=== PATIENT | male | born 1975 | race African-American/Black ===

== ENCOUNTER 2017-02-08 21:46 | Observation (INO) | payer MEDICAID ==
[~2017-02-08 21:46] MED LIST: LANTINJ SQ; METF1000 PO; PEN31MIS2
[2017-02-08 21:56] VITALS: BP 135/91; PULSE 118; RESP 16; TEMP 99.2; O2SAT 97
[2017-02-09] VITALS (8 sets, daily range): BP systolic 104–137; BP diastolic 61–98; PULSE 64–102; RESP 16–20; TEMP 98.4–98.6; O2SAT 97–99
[2017-02-09] MEDS ORDERED: SODIUM CHLOR 0.9% 1000 ML INJ 1,000 ML IV ONE ×2 (03:26→03:56)
[2017-02-09] MEDS ORDERED: INSULIN HUMAN REGULAR 1,000 UNITS/10 ML VIAL SQ ONE (03:30)
[2017-02-09] MEDS ORDERED: INSULIN HUMAN REGULAR 1,000 UNITS/10 ML VIAL IV PUSH ONE (03:30)
[2017-02-09 03:32] LABS: BLOOD GAS VENOUS BASE EXCESS -2.8 mmol/L (-2-2); BLOOD GAS VENOUS HCO3 22 mmol/L (22-26); BLOOD GAS VENOUS O2 CONTENT 12.8 Vol % (9.0-17.0); BLOOD GAS VENOUS O2 HGB SAT 55 % (70-76); BLOOD GAS VENOUS PCO2 41 mmHg (44-48); BLOOD GAS VENOUS PO2 31 mmHg (35-40); BLOOD GAS VENOUS pH 7.35 (7.360-7.400); CRITICAL VALUE NO; DRAW SITE RIGHT ARM; FIO2 21 %; OXYGEN DEVICE ROOM AIR; STAT YES; TEMP CORR TO 98.6
[2017-02-09 03:47] LABS: AUTOMATED NEUTROPHIL # 9.2 TH/MM3 (1.8-7.7); BASOPHIL # 0.1 TH/MM3 (0-0.2); BASOPHIL % 0.9 % (0.0-2.0); EOSINOPHIL # 0.1 TH/MM3 (0-0.4); EOSINOPHIL % 0.5 % (0.0-4.0); HEMATOCRIT 52.1 % (39.0-51.0); HEMO FLAGS DIFF FINAL; LYMPH % 24.5 % (9.0-44.0); LYMPHOCYTE # 3.3 TH/MM3 (1.0-4.8); MEAN CORPUSCULAR HEMOGLOBIN 28.7 PG (27.0-34.0); MEAN CORPUSCULAR HGB CONC 33.4 % (32.0-36.0); MONO % 5.7 % (0.0-8.0); NEUT % 68.4 % (16.0-70.0); PLATELET COUNT 281 TH/MM3 (150-450); RED BLOOD COUNT 6.06 MIL/MM3 (4.50-5.90); RED CELL DISTRIBUTION WIDTH 13.2 % (11.6-17.2); WHITE BLOOD COUNT 13.5 TH/MM3 (4.0-11.0)
--- NOTE | 2017-02-09 03:49 | PD ---
HPI Chief Complaint: Diabetic Time Seen by Provider: 03:26 Travel History International Travel<30 days: No Contact w/Intl Traveler<30days: No Traveled to known affect area: No History of Present Illness HPI PT C/O DIFFUSE ABD CRAMPY PAIN, NO N/V/D/CP/SOB/MOON/ BUT HIGH BLOOD SUGAR FOR PAST 2 DAYS, NOT CONTROLLED WITH METFORMIN 1000MG PO BID PRESCRIBED. PT COMES IN FOR FURTHER EVALUATION AND CARE. ACCUCHECK IN 500'S [facility] Past Medical History Diabetes: Yes Patient Takes Glucophage: Yes (02/08/17 1800) Diminished Hearing: No Hypertension: Yes Influenza Vaccination: No Past Surgical History Surgical History: No Previous Surgery Social History Alcohol Use: Yes Tobacco Use: Yes Substance Use: Yes (marijuana) Allergies-Medications (Allergen,Severity, Reaction): Coded Allergies: No Known Allergies (Unverified , 09/27/16) Reported Meds & Prescriptions Reported Meds & Active Scripts Active Review of Systems Except as stated in HPI: all other systems reviewed are Neg Gastrointestinal: Positive: Nausea Endocrine: Positive: Polyuria, Polydipsia Physical Exam Narrative GENERAL: SKIN: Warm and dry. HEAD: Atraumatic. Normocephalic. EYES: Pupils equal and round. No scleral icterus. No injection or drainage. ENT: No nasal bleeding or discharge. Mucous membranes pink and moist. NECK: Trachea midline. No JVD. CARDIOVASCULAR: Regular rate and rhythm. RESPIRATORY: No accessory muscle use. Clear to auscultation. Breath sounds equal bilaterally. GASTROINTESTINAL: Abdomen soft, non-tender, nondistended. MUSCULOSKELETAL: Extremities without clubbing, cyanosis, or edema. No obvious deformities. NEUROLOGICAL: Awake and alert. No obvious cranial nerve deficits. Motor grossly within normal limits. Five out of 5 muscle strength in the arms and legs. Normal speech. PSYCHIATRIC: Appropriate mood and affect; insight and judgment normal. Data Data Last Documented VS Vital Signs Date Time Temp Pulse Resp B/P Pulse Ox O2 Delivery O2 Flow Rate FiO2 02/09/17 03:21 102 18 137/98 99 Room Air 02/08/17 21:56 99.2 Orders Electrocardiogram (02/09/17 03:26) Complete Blood Count With Diff (02/09/17 03:26) Comprehensive Metabolic Panel (02/09/17 03:26) Beta Hydroxybutyrate (Acetone) (02/09/17 03:26) Urinalysis - C+S If Indicated (02/09/17 03:26) Blood Gas Venous (Vbg) (02/09/17 03:26) Ecg Monitoring (02/09/17 03:26) Iv Access Insert/Monitor (02/09/17 03:26) Oximetry (02/09/17 03:26) NPO (02/09/17 03:26) Sodium Chlor 0.9% 1000 Ml Inj (Ns 1000 M (02/09/17 03:26) Sodium Chlor 0.9% 1000 Ml Inj (Ns 1000 M (02/09/17 03:56) Troponin I (02/09/17 03:26) Lipase (02/09/17 03:26) Ct Abd/Pel W/O Iv Contrast (02/09/17 03:26) Insulin Human Regular Inj (Novolin R Inj (02/09/17 03:30) Insulin Human Regular Inj (Novolin R Inj (02/09/17 03:30) Ondansetron Inj (Zofran Inj) (02/09/17 04:45) Sodium Chlor 0.9% 1000 Ml Inj (Ns 1000 M (02/09/17 04:40) Hydromorphone Pf Inj (Dilaudid Pf Inj) (02/09/17 04:45) Admit Order (Ed Use Only) (02/09/17 04:54) Labs Laboratory Tests Test 02/09/17 02/09/17 02/09/17 03:20 03:30 04:02 Blood Gas Puncture Site RIGHT ARM Blood Gas Patient Temperature 98.6 Venous Blood pH 7.35 Venous Blood Partial Pressure 41 mmHg CO2 Venous Blood Partial Pressure 31 mmHg O2 Venous Blood HCO3 22 mmol/L Venous Blood Oxygen Saturation 55 % Venous Blood Oxygen Content 12.8 Vol % Venous Blood Base Excess -2.8 mmol/L Oxygen Delivery Device ROOM AIR Blood Gas Inspired Oxygen 21 % White Blood Count 13.5 TH/MM3 Red Blood Count 6.06 MIL/MM3 Hemoglobin 17.4 GM/DL Hematocrit 52.1 % Mean Corpuscular Volume 86.0 FL Mean Corpuscular Hemoglobin 28.7 PG Mean Corpuscular Hemoglobin 33.4 % Concent Red Cell Distribution Width 13.2 % Platelet Count 281 TH/MM3 Mean Platelet Volume 10.6 FL Neutrophils (%) (Auto) 68.4 % Lymphocytes (%) (Auto) 24.5 % Monocytes (%) (Auto) 5.7 % Eosinophils (%) (Auto) 0.5 % Basophils (%) (Auto) 0.9 % Neutrophils # (Auto) 9.2 TH/MM3 Lymphocytes # (Auto) 3.3 TH/MM3 Monocytes # (Auto) 0.8 TH/MM3 Eosinophils # (Auto) 0.1 TH/MM3 Basophils # (Auto) 0.1 TH/MM3 CBC Comment DIFF FINAL Differential Comment Sodium Level 131 MEQ/L Potassium Level 3.9 MEQ/L Chloride Level 93 MEQ/L Carbon Dioxide Level 25.8 MEQ/L Anion Gap 12 MEQ/L Blood Urea Nitrogen 9 MG/DL Creatinine 1.40 MG/DL Estimat Glomerular Filtration 67 ML/MIN Rate Random Glucose 637 MG/DL Hemoglobin A1c 15.2 % Calcium Level 9.1 MG/DL Total Bilirubin 0.8 MG/DL Aspartate Amino Transf 19 U/L (AST/SGOT) Alanine Aminotransferase 23 U/L (ALT/SGPT) Alkaline Phosphatase 126 U/L Troponin I LESS THAN 0.02 NG/ML Total Protein 8.6 GM/DL Albumin 4.0 GM/DL Lipase 773 U/L B-Hydroxybutyrate 0.66 MMOL/L Urine Color LIGHT-YELLOW Urine Turbidity CLEAR Urine pH 5.0 Urine Specific [employer] 1.041 Urine Protein NEG mg/dL Urine Glucose (UA) 1000 mg/dL Urine Ketones 40 mg/dL Urine Occult Blood NEG Urine Nitrite NEG Urine Bilirubin NEG Urine Urobilinogen LESS THAN 2.0 MG/DL Urine Leukocyte Esterase NEG Urine WBC LESS THAN 1 /hpf Microscopic Urinalysis Comment CULT NOT INDICATED MDM Medical Decision Making Medical Screen Exam Complete: Yes Emergency Medical Condition: Yes Medical Record Reviewed: Yes Interpretation(s) NSR 95, NL INTERVALS, J POINT ELEVATION, NO STEMI PATTERN, Differential Diagnosis HYPERGLYCEMIA V TX V PANCREATITIS Narrative Course NO STEMI FOUND ON EKG, HOWEVER FOUND TO HAVE ELEV LIPASE AN GLUCOSE Diagnosis Primary Impression: Acute pancreatitis Qualified Code: K85.90 - Acute pancreatitis, unspecified complication status, unspecified pancreatitis type Additional Impression: Hyperglycemia due to type 2 diabetes mellitus Qualified Code: E11.65 - Type 2 diabetes mellitus with hyperglycemia, without long-term current use of insulin Scripts Insulin Syringe/Needle U-100 (Insulin Syringe/0.5ML/30G 30G X 1/2" 0.5 ml)1 Mis Mis #1 BOX .ROUTE DIRECTED PRN (BLOOD SUGAR MONITORING) Ref 11 Prov:Srinivasan Oneill DO 02/10/17 Blood Glucose Test Strips Strips Strip #300 EA .ROUTE DIRECTED Ref 11 Prov:PapadomingoSrinivasan thomas DO 02/10/17 Blood Glucose Monitoring W/Device 1 Kit Kit #1 KIT .ROUTE DIRECTED Ref 0 Prov:Srinivasan Oneill DO 02/10/17 Insulin Glargine Inj (Lantus Inj)100 Unit/Ml Inj20 Units SQ DAILY #7 VIAL Prov:Srinivasan Oneill DO 02/10/17 Metformin 1,000 Mg Tab1,000 Mg PO BIDPC #60 TAB Ref 6 With meals Prov:Srinivasan Oneill DO 02/10/17 Disposition: 01 DISCHARGE HOME Condition: Stable Parmjit Christine MD Feb 09, 2017 03:49
[2017-02-09 04:13] LABS: ANION GAP 12 MEQ/L (5-15)
[2017-02-09 04:23] LABS: ALKALINE PHOSPHATASE 126 U/L (45-117); ALT (GPT) 23 U/L (12-78); AST (GOT) 19 U/L (15-37); BETA-HYDROXYBUTYRATE 0.66 MMOL/L (0.00-0.39); BICARBONATE 25.8 MEQ/L (21.0-32.0); BLOOD UREA NITROGEN 9 MG/DL (7-18); CHLORIDE 93 MEQ/L (98-107); GLOMERULAR FILTRATION RATE 67 ML/MIN (>89); POTASSIUM 3.9 MEQ/L (3.5-5.1); SODIUM (NA) 131 MEQ/L (136-145); TOTAL BILIRUBIN ADULT 0.8 MG/DL (0.2-1.0)
[2017-02-09 04:33] LABS: BLOOD, URINE NEG (NEG); GLUCOSE,URINE 1000 mg/dL (NEG); KETONE, URINE 40 mg/dL (NEG); NITRITE,URINE NEG (NEG); URINE COLOR LIGHT-YELLOW (YELLW/STRAW)
[2017-02-09 04:38] LABS: COMMENT (UR) CULT NOT INDICATED; CULTURE IF INDICATED CULT NOT INDICATED
[2017-02-09] MEDS ORDERED: SODIUM CHLOR 0.9% 1000 ML INJ 1,000 ML IV SCH (04:40)
[2017-02-09] MEDS ORDERED: ONDANSETRON HCL 4 MG/2 ML VIAL IVP ONE (04:45)
[2017-02-09] MEDS ORDERED: HYDROmorphone HCL PF 1 MG/ML VIAL IVS ONE (04:45)
[2017-02-09] MEDS: SODIUM CHLOR 0.9% 1000 ML INJ 1,000 ML IV SCH ×3 (04:56→22:32)
--- NOTE | 2017-02-09 04:59 | RADRPT ---
EXAM DATE/TIME: 02/09/2017 04:12 [place] COMPARISON: SPINE LUMBAR LTD (AP & LAT), July 27, 2015, 19:38. INDICATIONS : Diffuse abdominal pain. ORAL CONTRAST: No oral contrast ingested. RADIATION DOSE: 15.93 CTDIvol (mGy) MEDICAL HISTORY : Hypertension. Diabetes. SURGICAL HISTORY : None. ENCOUNTER: Initial ACUITY: 1 day PAIN SCALE: 5/10 LOCATION: All quadrants. TECHNIQUE: Volumetric scanning of the abdomen and pelvis was performed. Using automated exposure control and ad justment of the mA and/or kV according to patient size, radiation dose was kept as low as reasonably achievable to obtain optimal diagnostic quality images. DICOM format image data is available electro nically for review and comparison. FINDINGS: LOWER LUNGS: The visualized lower lungs are clear. LIVER: Homogeneous density without lesion for noncontrast technique. There is no dilation of the biliary tr ee. No calcified gallstones. SPLEEN: Normal size without lesion. PANCREAS: Within normal limits. KIDNEYS: Normal in size and shape. There is no mass, stone, or hydronephrosis. ADRENAL GLANDS: Within normal limits. VASCULAR: There is no aortic aneurysm. BOWEL/MESENTERY: No dilated loops of small large bowel. The appendix is identified in the right lower quadrant has a normal size and configuration. ABDOMINAL WALL: Fat-containing right paraumbilical ventral hernia RETROPERITONEUM: There is no lymphadenopathy. BLADDER: No wall thickening or mass. REPRODUCTIVE: Within normal limits. INGUINAL: There is no lymphadenopathy or hernia. MUSCULOSKELETAL: Focal area sclerosis in the medial right iliac bone adjacent to SI joint stable from prior convention al radiograph. CONCLUSION: Negative noncontrast CT abdomen/pelvis. Kareem Golden MD on February 09, 2017 at 4:54 Board Certified Radiologist. This report was verified electronically.
[2017-02-09] MEDS ORDERED: NALOXONE HCL 0.4 MG/ML AMP IV PRN (05:00)
[2017-02-09] MEDS ORDERED: SODIUM CHLORIDE 0.9% FLUSH 10 ML FLUSH IV FLUSH PRN (05:00)
[2017-02-09] MEDS: SODIUM CHLORIDE 0.9% FLUSH 10 ML FLUSH IV FLUSH SCH ×2 (09:00→22:32)
[2017-02-09] MEDS ORDERED: DEXTROSE 50% IN WATER 50 ML VIAL(D50) IV PRN (12:15)
[2017-02-09] MEDS ORDERED: GLUCAGON 1 MG/ML VIAL OTHER PRN (12:15)
--- NOTE | 2017-02-09 12:23 | HHI.HP ---
[facility] Service [facility] Primary Care Physician Lakeisha Zamora MD Admission Diagnosis ACUTE PANCREATITIS,HYPERGLYCEMIA WITH MILD KETOSIS Diagnoses: (1) Hyperglycemia due to type 2 diabetes mellitus Diagnosis: Principal (2) Acute pancreatitis Diagnosis: Principal (3) Diabetes mellitus type 2, uncontrolled Diagnosis: Principal (4) Elevated blood sugar Diagnosis: Principal (5) Diabetes mellitus, type II Diagnosis: Principal Chief Complaint: Uncontrolled blood sugar and abdominal pain Travel History International Travel<30 Days: No Contact w/Intl Traveler <30 Da: No Traveled to Known Affected Are: No History of Present Illness Patient is a 41-year-old male who presents with C/O DIFFUSE ABD CRAMPY PAIN, NO N/V/D/CP/SOB/MOON/ BUT HIGH BLOOD SUGAR FOR PAST 2 DAYS, NOT CONTROLLED WITH METFORMIN 1000MG PO BID PRESCRIBED. PT COMES IN FOR FURTHER EVALUATION AND CARE. ACCUCHECK IN 500'S Patient states he has some insulin pens but cannot recall any of the names cannot tell me what type he takes Start him on Levemir 10 units subcutaneous twice a day Continue on sliding scale coverage Get a.m. labs Check a hemoglobin A1c Get a fasting lipid panel Review of Systems Constitutional: COMPLAINS OF: Fatigue, DENIES: Diaphoretic episodes, Fever, Weight gain, Weight loss, Chills Eyes: DENIES: Blurred vision, Diplopia, Eye inflammation, Eye pain Ears, nose, mouth, throat: DENIES: Tinnitus, Hearing loss, Vertigo, Nasal discharge Respiratory: DENIES: Apneas, Cough, Snoring, Wheezing Cardiovascular: DENIES: Chest pain, Palpitations, Syncope Gastrointestinal: COMPLAINS OF: Abdominal pain, DENIES: Black stools, Bloody stools, Constipation Musculoskeletal: DENIES: Joint pain, Muscle aches Integumentary: DENIES: Abnormal pigmentation, Nail changes Hematologic/lymphatic: DENIES: Bruising, Lymphadenopathy Immunologic/allergic: DENIES: Eczema, Urticaria Neurologic: DENIES: Abnormal gait, Headache Psychiatric: DENIES: Anxiety, Confusion, Mood changes Past Family Social History Past Medical History Hypertension Diabetes uncontrolled Alcohol abuse Tobacco abuse Past Surgical History Denies Reported Medications Reported Meds & Active Scripts Active Metformin (Metformin HCl) 1,000 Mg Tab 1,000 Mg PO BIDPC With meals Allergies: Coded Allergies: No Known Allergies (Unverified , 09/27/16) Active Ordered Medications Current Medications Sodium Chloride 1,000 ml @ 2,000 mls/hr Q30M ONCE IV Last administered on 02/09 03:34; Start 02/09/17 at 03:26; Stop 02/09/17 at 03:55; Status DC Sodium Chloride (NS 1000 ml Inj) 1,000 ml @ 2,000 mls/hr Q30M ONCE IV Last administered on 02/09/17 03:34; Start 02/09/17 at 03:56; Stop 02/09/17 at 04:25 ; Status DC Insulin Human Regular (NovoLIN R INJ) 10 units ONCE ONCE SQ Last administered on 02/09/17 03:42; Start 02/09/17 at 03:30; Stop 02/09/17 at 03:31; Status DC Insulin Human Regular (NovoLIN R INJ) 10 units ONCE ONCE IV PUSH Last administered on 02/09/17 03:43; Start 02/09/17 at 03:30; Stop 02/09/17 at 03:31 ; Status DC Ondansetron HCl 4 mg 4 mg ONCE ONCE IVP Last administered on 02/09/17 04:50; Start 02/09/17 at 04:45; Stop 02/09/17 at 04:46; Status DC Sodium Chloride (NS 1000 ml Inj) 1,000 ml @ 125 mls/hr Q8H IV Last administered on 02/09/17 04:50; Start 02/09/17 at 04:40; Stop 02/09/17 at 05:04 ; Status DC Hydromorphone HCl 0.5 mg 0.5 mg ONCE ONCE IVS Last administered on 02/09/17 04:50; Start 02/09/17 at 04:45; Stop 02/09/17 at 04:46; Status DC Sodium Chloride (NS 1000 ml Inj) 1,000 ml @ 100 mls/hr Q10H IV ; Start at 04:56 Sodium Chloride (NS Flush) 2 ml UNSCH PRN IV FLUSH FLUSH AFTER USING IV ACCESS ; Start 02/09/17 at 05:00 Sodium Chloride (NS Flush) 2 ml BID IV FLUSH ; Start 02/09/17 at 09:00 Naloxone HCl (Narcan Inj) 0.4 mg UNSCH PRN IV SEE LABEL COMMENTS; Start at 05:00 Metformin HCl (Glucophage) 1,000 mg BIDPC PO ; Start 02/09/17 at 12:15; Status UNV Family History Heart disease and diabetes in the family Social History Tobacco and alcohol abuse as well as marijuana abuse Physical Exam Vital Signs Vital Signs Date Time Temp Pulse Resp B/P Pulse Ox O2 Delivery O2 Flow Rate FiO2 02/09/17 11:40 74 20 119/71 98 02/09/17 07:00 90 17 104/61 99 Room Air 02/09/17 05:59 89 16 120/80 97 Room Air 02/09/17 03:21 102 18 137/98 99 Room Air 02/08/17 21:56 99.2 118 16 135/91 97 Physical Exam GENERAL: This is a well-nourished, well-developed patient, in no apparent distress. SKIN: No rashes, ecchymoses or lesions. Cool and dry. HEAD: Atraumatic. Normocephalic. No temporal or scalp tenderness. EYES: Pupils equal round and reactive. Extraocular motions intact. No scleral icterus. No injection or drainage. ENT: Nose without bleeding, purulent drainage or septal hematoma. Throat without erythema, tonsillar hypertrophy or exudate. Uvula midline. Airway patent. Tongue is midline NECK: Trachea midline. No JVD or lymphadenopathy. Supple, nontender, no meningeal signs. CARDIOVASCULAR: Regular rate and rhythm without murmurs, gallops, or rubs. S1- S2 no S3 or S4 no heave or thrill or rub or gallop RESPIRATORY: Clear to auscultation. Breath sounds equal bilaterally. No wheezes , rales, or rhonchi. GASTROINTESTINAL: Abdomen soft, non-tender, nondistended. No hepato-splenomegaly , or palpable masses. No guarding. Obese MUSCULOSKELETAL: Extremities without clubbing, cyanosis, or edema. No joint tenderness, effusion, or edema noted. No calf tenderness. Negative Homans sign bilaterally. NEUROLOGICAL: Awake and alert. Cranial nerves II through XII intact. Motor and sensory grossly within normal limits. Five out of 5 muscle strength in all muscle groups. Normal speech. Insight and judgment appear limited mood and behavior appropriate Laboratory Laboratory Tests Test 02/09/17 02/09/17 02/09/17 03:20 03:30 04:02 Blood Gas Puncture Site RIGHT ARM Blood Gas Patient Temperature 98.6 Venous Blood pH 7.35 Venous Blood Partial Pressure 41 CO2 Venous Blood Partial Pressure 31 O2 Venous Blood HCO3 22 Venous Blood Oxygen Saturation 55 Venous Blood Oxygen Content 12.8 Venous Blood Base Excess -2.8 Oxygen Delivery Device ROOM AIR Blood Gas Inspired Oxygen 21 White Blood Count 13.5 Red Blood Count 6.06 Hemoglobin 17.4 Hematocrit 52.1 Mean Corpuscular Volume 86.0 Mean Corpuscular Hemoglobin 28.7 Mean Corpuscular Hemoglobin 33.4 Concent Red Cell Distribution Width 13.2 Platelet Count 281 Mean Platelet Volume 10.6 Neutrophils (%) (Auto) 68.4 Lymphocytes (%) (Auto) 24.5 Monocytes (%) (Auto) 5.7 Eosinophils (%) (Auto) 0.5 Basophils (%) (Auto) 0.9 Neutrophils # (Auto) 9.2 Lymphocytes # (Auto) 3.3 Monocytes # (Auto) 0.8 Eosinophils # (Auto) 0.1 Basophils # (Auto) 0.1 CBC Comment DIFF FINAL Differential Comment Sodium Level 131 Potassium Level 3.9 Chloride Level 93 Carbon Dioxide Level 25.8 Anion Gap 12 Blood Urea Nitrogen 9 Creatinine 1.40 Estimat Glomerular Filtration 67 Rate Random Glucose 637 Calcium Level 9.1 Total Bilirubin 0.8 Aspartate Amino Transf 19 (AST/SGOT) Alanine Aminotransferase 23 (ALT/SGPT) Alkaline Phosphatase 126 Troponin I LESS THAN 0.02 Total Protein 8.6 Albumin 4.0 Lipase 773 B-Hydroxybutyrate 0.66 Urine Color LIGHT-YELLOW Urine Turbidity CLEAR Urine pH 5.0 Urine Specific [employer] 1.041 Urine Protein NEG Urine Glucose (UA) 1000 Urine Ketones 40 Urine Occult Blood NEG Urine Nitrite NEG Urine Bilirubin NEG Urine Urobilinogen LESS THAN 2.0 Urine Leukocyte Esterase NEG Urine WBC LESS THAN 1 Microscopic Urinalysis Comment CULT NOT INDICATED Result Diagram: 02/09/1732902/09/17329 Imaging Last Impressions Abdomen/Pelvis CT 02/09/17325 Signed Impressions: Service Date/Time: Thursday, February 09, 2017 04:12 - CONCLUSION: Negative noncontrast CT abdomen/pelvis. Kareem Golden MD Assessment and Plan Problem List: (1) Hyperglycemia due to type 2 diabetes mellitus ICD Code: E11.65 Status: Acute (2) Acute pancreatitis ICD Code: K85.90 Status: Acute (3) Diabetes mellitus type 2, uncontrolled ICD Code: E11.65 Status: Acute (4) Elevated blood sugar ICD Code: R73.9 Status: Acute (5) Diabetes mellitus, type II ICD Code: E11.9 Status: Acute Assessment and Plan Uncontrolled diabetes. States his takes metformin and some pens not sure what type of insulin he takes could not tell me in name We'll start him on Levemir 10 units subcutaneous twice a day Resume his metformin Check a hemoglobin A1c A.m. labs Possible pancreatitis and fasting lipids. Recheck amylase and lipase in the morning Continue on a diabetic cardiac diet which she is tolerating Recommended smoking and alcohol cessation as well as marijuana cessation We'll monitor today will get diabetic education and nutrition to educate him. When he does understand how to use the pens/inject insulin Code Status Full code Discussed Condition With RN and patient Problem Qualifiers (1) Hyperglycemia due to type 2 diabetes mellitus: Qualified Code: E11.65 - Type 2 diabetes mellitus with hyperglycemia, without long-term current use of insulin (2) Acute pancreatitis: Qualified Code: K85.90 - Acute pancreatitis, unspecified complication status, unspecified pancreatitis type Srinivasan Oneill DO Feb 09, 2017 12:23
[2017-02-09] MEDS: metFORMIN HCL 500 MG TAB PO SCH ×2 (14:15→18:25)
--- NOTE | 2017-02-09 15:04 | EKG ---
Date Performed: 02/09/2017 Time Performed: 03:40:45 PTAGE: 41 years EKG: Sinus rhythm NORMAL ECG NO PREVIOUS TRACING DOCTOR: Deacon Gunderson Interpretating Date/Time 02/09/2017 15:04:23
[2017-02-09] MEDS: INSULIN ASPART SUPPLEMENTAL SCALE SQ SCH ×2 (16:36→22:35)
[2017-02-09 16:50] LABS: HEMOGLOBIN A1a 1.6 %; HEMOGLOBIN A1b 1.8 %; HEMOGLOBIN Ao 67.3 %; HEMOGLOBIN F 2.7 %; HEMOGLOBIN LA1C 4.8 %; HEMOGLOBIN P3 6.5 %
[2017-02-09] MEDS: INSULIN DETEMIR 100 UNITS/ML VIAL SQ SCH (22:34)
[2017-02-10 01:07] LABS: BICARBONATE 24.4 MEQ/L (21.0-32.0); MAGNESIUM 1.8 MG/DL (1.5-2.5); POTASSIUM 3.8 MEQ/L (3.5-5.1)
[2017-02-10 04:22] VITALS: BP 129/72; PULSE 81; RESP 20; TEMP 98.5; O2SAT 98
[2017-02-10] MEDS: INSULIN ASPART SUPPLEMENTAL SCALE SQ SCH ×2 (06:16→13:25)
[2017-02-10 07:05] LABS: AUTOMATED NEUTROPHIL # 8.5 TH/MM3 (1.8-7.7); BASOPHIL % 0.4 % (0.0-2.0); EOSINOPHIL % 0.2 % (0.0-4.0); HEMATOCRIT 43.8 % (39.0-51.0); HEMO FLAGS DIFF FINAL; LYMPH % 20.7 % (9.0-44.0); LYMPHOCYTE # 2.4 TH/MM3 (1.0-4.8); MEAN CELL VOLUME 86.8 FL (80.0-100.0); MEAN CORPUSCULAR HEMOGLOBIN 27.9 PG (27.0-34.0); MEAN CORPUSCULAR HGB CONC 32.1 % (32.0-36.0); MONO % 5.2 % (0.0-8.0); NEUT % 73.5 % (16.0-70.0); PLATELET COUNT 243 TH/MM3 (150-450); RED BLOOD COUNT 5.04 MIL/MM3 (4.50-5.90); RED CELL DISTRIBUTION WIDTH 13.1 % (11.6-17.2); WHITE BLOOD COUNT 11.5 TH/MM3 (4.0-11.0)
[2017-02-10 07:30] LABS: ALKALINE PHOSPHATASE 80 U/L (45-117); ALT (GPT) 17 U/L (12-78); AMYLASE 93 U/L (25-115); ANION GAP 9 MEQ/L (5-15); AST (GOT) 13 U/L (15-37); BICARBONATE 23.3 MEQ/L (21.0-32.0); BLOOD UREA NITROGEN 7 MG/DL (7-18); CHLORIDE 109 MEQ/L (98-107); FREE T4 1.11 NG/DL (0.76-1.46); GLOMERULAR FILTRATION RATE 112 ML/MIN (>89); HDL CHOLESTEROL 36.3 MG/DL (40.0-60.0); LDL CHOLESTEROL 7 MG/DL (0-99); MAGNESIUM 1.7 MG/DL (1.5-2.5); POTASSIUM 3.4 MEQ/L (3.5-5.1); SODIUM (NA) 141 MEQ/L (136-145); TOTAL BILIRUBIN ADULT 0.6 MG/DL (0.2-1.0)
[2017-02-10 08:00] VITALS: BP 121/68; PULSE 85; RESP 20; TEMP 98.1; O2SAT 95
[2017-02-10] MEDS: SODIUM CHLOR 0.9% 1000 ML INJ 1,000 ML IV SCH (08:29)
[2017-02-10] MEDS: SODIUM CHLORIDE 0.9% FLUSH 10 ML FLUSH IV FLUSH SCH (08:29)
[2017-02-10] MEDS: metFORMIN HCL 500 MG TAB PO SCH (08:29)
[2017-02-10] MEDS: INSULIN DETEMIR 100 UNITS/ML VIAL SQ SCH (08:35)
--- NOTE | 2017-02-10 11:46 | HHI.PR ---
Subjective Remarks Patient is a 41-year-old male who presents with C/O DIFFUSE ABD CRAMPY PAIN, NO N/V/D/CP/SOB/MOON/ BUT HIGH BLOOD SUGAR FOR PAST 2 DAYS, NOT CONTROLLED WITH METFORMIN 1000MG PO BID PRESCRIBED. PT COMES IN FOR FURTHER EVALUATION AND CARE. ACCUCHECK IN 'S Patient states he has some insulin pens but cannot recall any of the names cannot tell me what type he takes Start him on Levemir 10 units subcutaneous twice a day Continue on sliding scale coverage Get a.m. labs Check a hemoglobin A1c Get a fasting lipid panel 01-10 HBAIC IS 15.2 PATIENT HAS BEEN NONCOMPLIANT NEEDS TO TAKE HIS LANTUS AND METFORMIN NEEDS TO FOLLOW WITH HIS PRIMARY AND LEARN TO CONTROL HIS DIABETES WANTS TO GO HOME Objective Vitals Vital Signs Date Time Temp Pulse Resp B/P Pulse Ox O2 Delivery O2 Flow Rate FiO2 02/10/17 08:00 98.1 85 20 121/68 95 02/10/17 04:22 98.5 81 20 129/72 98 02/09/17 23:30 98.6 75 20 122/73 98 02/09/17 18:19 98.6 83 18 122/88 99 02/09/17 13:17 64 02/09/17 13:06 98.4 70 20 123/80 98 I/O 02/09/17 02/09/17 02/09/17 02/10/17 02/10/17 02/10/17 07:00 15:00 23:00 07:00 15:00 23:00 Intake Total 181 ml 366 ml 1128 ml Output Total 500 ml 225 ml 450 ml Balance -500 ml -44 ml 366 ml 678 ml Intake IV Total 181 ml 366 ml 1128 ml Output Urine Total 500 ml 225 ml 450 ml # Bowel Movements 1 Result Diagram: 02/10/17 0608 02/10/17 0608 Other Results Laboratory Tests Test 02/09/17 02/09/17 02/09/17 02/09/17 03:20 03:30 04:02 23:10 Blood Gas Puncture Site RIGHT ARM Blood Gas Patient Temperature 98.6 Venous Blood pH 7.35 Venous Blood Partial Pressure 41 mmHg CO2 Venous Blood Partial Pressure 31 mmHg O2 Venous Blood HCO3 22 mmol/L Venous Blood Oxygen Saturation 55 % Venous Blood Oxygen Content 12.8 Vol % Venous Blood Base Excess -2.8 mmol/L Oxygen Delivery Device ROOM AIR Blood Gas Inspired Oxygen 21 % White Blood Count 13.5 TH/MM3 Red Blood Count 6.06 MIL/MM3 Hemoglobin 17.4 GM/DL Hematocrit 52.1 % Mean Corpuscular Volume 86.0 FL Mean Corpuscular Hemoglobin 28.7 PG Mean Corpuscular Hemoglobin 33.4 % Concent Red Cell Distribution Width 13.2 % Platelet Count 281 TH/MM3 Mean Platelet Volume 10.6 FL Neutrophils (%) (Auto) 68.4 % Lymphocytes (%) (Auto) 24.5 % Monocytes (%) (Auto) 5.7 % Eosinophils (%) (Auto) 0.5 % Basophils (%) (Auto) 0.9 % Neutrophils # (Auto) 9.2 TH/MM3 Lymphocytes # (Auto) 3.3 TH/MM3 Monocytes # (Auto) 0.8 TH/MM3 Eosinophils # (Auto) 0.1 TH/MM3 Basophils # (Auto) 0.1 TH/MM3 CBC Comment DIFF FINAL Differential Comment Sodium Level 131 MEQ/L 138 MEQ/L Potassium Level 3.9 MEQ/L 3.8 MEQ/L Chloride Level 93 MEQ/L 109 MEQ/L Carbon Dioxide Level 25.8 MEQ/L 24.4 MEQ/L Anion Gap 12 MEQ/L 5 MEQ/L Blood Urea Nitrogen 9 MG/DL 7 MG/DL Creatinine 1.40 MG/DL 0.95 MG/DL Estimat Glomerular Filtration 67 ML/MIN 105 ML/MIN Rate Random Glucose 637 MG/DL 238 MG/DL Hemoglobin A1c 15.2 % Calcium Level 9.1 MG/DL 7.5 MG/DL Total Bilirubin 0.8 MG/DL Aspartate Amino Transf 19 U/L (AST/SGOT) Alanine Aminotransferase 23 U/L (ALT/SGPT) Alkaline Phosphatase 126 U/L Troponin I LESS THAN 0.02 NG/ML Total Protein 8.6 GM/DL Albumin 4.0 GM/DL Lipase 773 U/L B-Hydroxybutyrate 0.66 MMOL/L Urine Color LIGHT-YELLOW Urine Turbidity CLEAR Urine pH 5.0 Urine Specific [place] 1.041 Urine Protein NEG mg/dL Urine Glucose (UA) 1000 mg/dL Urine Ketones 40 mg/dL Urine Occult Blood NEG Urine Nitrite NEG Urine Bilirubin NEG Urine Urobilinogen LESS THAN 2.0 MG/DL Urine Leukocyte Esterase NEG Urine WBC LESS THAN 1 /hpf Microscopic Urinalysis Comment CULT NOT INDICATED Magnesium Level 1.8 MG/DL Test 02/10/17 06:08 White Blood Count 11.5 TH/MM3 Red Blood Count 5.04 MIL/MM3 Hemoglobin 14.1 GM/DL Hematocrit 43.8 % Mean Corpuscular Volume 86.8 FL Mean Corpuscular Hemoglobin 27.9 PG Mean Corpuscular Hemoglobin 32.1 % Concent Red Cell Distribution Width 13.1 % Platelet Count 243 TH/MM3 Mean Platelet Volume 9.9 FL Neutrophils (%) (Auto) 73.5 % Lymphocytes (%) (Auto) 20.7 % Monocytes (%) (Auto) 5.2 % Eosinophils (%) (Auto) 0.2 % Basophils (%) (Auto) 0.4 % Neutrophils # (Auto) 8.5 TH/MM3 Lymphocytes # (Auto) 2.4 TH/MM3 Monocytes # (Auto) 0.6 TH/MM3 Eosinophils # (Auto) 0.0 TH/MM3 Basophils # (Auto) 0.0 TH/MM3 CBC Comment DIFF FINAL Differential Comment Sodium Level 141 MEQ/L Potassium Level 3.4 MEQ/L Chloride Level 109 MEQ/L Carbon Dioxide Level 23.3 MEQ/L Anion Gap 9 MEQ/L Blood Urea Nitrogen 7 MG/DL Creatinine 0.90 MG/DL Estimat Glomerular Filtration 112 ML/MIN Rate Random Glucose 216 MG/DL Calcium Level 7.6 MG/DL Phosphorus Level 2.8 MG/DL Magnesium Level 1.7 MG/DL Total Bilirubin 0.6 MG/DL Aspartate Amino Transf 13 U/L (AST/SGOT) Alanine Aminotransferase 17 U/L (ALT/SGPT) Alkaline Phosphatase 80 U/L Total Protein 5.8 GM/DL Albumin 2.8 GM/DL Triglycerides Level 151 MG/DL Cholesterol Level 73 MG/DL LDL Cholesterol 7 MG/DL HDL Cholesterol 36.3 MG/DL Cholesterol/HDL Ratio 2.01 RATIO Amylase Level 93 U/L Lipase 315 U/L Free Thyroxine 1.11 NG/DL Thyroid Stimulating Hormone 0.493 uIU/ML 3rd Gen Imaging Last Impressions Abdomen/Pelvis CT 02/09/17 0326 Signed Impressions: Service Date/Time: Thursday, February 09, 2017 04:12 - CONCLUSION: Negative noncontrast CT abdomen/pelvis. Kareem Golden MD Objective Remarks GENERAL: This is a well-nourished, well-developed patient, in no apparent distress. SKIN: No rashes, ecchymoses or lesions. Cool and dry. HEAD: Atraumatic. Normocephalic. No temporal or scalp tenderness. EYES: Pupils equal round and reactive. Extraocular motions intact. No scleral icterus. No injection or drainage. ENT: Nose without bleeding, purulent drainage or septal hematoma. Throat without erythema, tonsillar hypertrophy or exudate. Uvula midline. Airway patent. Tongue is midline NECK: Trachea midline. No JVD or lymphadenopathy. Supple, nontender, no meningeal signs. CARDIOVASCULAR: Regular rate and rhythm without murmurs, gallops, or rubs. S1- S2 no S3 or S4 no heave or thrill or rub or gallop RESPIRATORY: Clear to auscultation. Breath sounds equal bilaterally. No wheezes , rales, or rhonchi. GASTROINTESTINAL: Abdomen soft, non-tender, nondistended. No hepato-splenomegaly , or palpable masses. No guarding. Obese MUSCULOSKELETAL: Extremities without clubbing, cyanosis, or edema. No joint tenderness, effusion, or edema noted. No calf tenderness. Negative Homans sign bilaterally. NEUROLOGICAL: Awake and alert. Cranial nerves II through XII intact. Motor and sensory grossly within normal limits. Five out of 5 muscle strength in all muscle groups. Normal speech. Insight and judgment appear limited mood and behavior appropriate Medications and IVs Current Medications Sodium Chloride 1,000 ml @ 2,000 mls/hr Q30M ONCE IV Last administered on 02/09 03:34; Start 02/09/17 at 03:26; Stop 02/09/17 at 03:55; Status DC Sodium Chloride (NS 1000 ml Inj) 1,000 ml @ 2,000 mls/hr Q30M ONCE IV Last administered on 02/09/17 03:34; Start 02/09/17 at 03:56; Stop 02/09/17 at 04:25 ; Status DC Insulin Human Regular (NovoLIN R INJ) 10 units ONCE ONCE SQ Last administered on 02/09/17 03:42; Start 02/09/17 at 03:30; Stop 02/09/17 at 03:31; Status DC Insulin Human Regular (NovoLIN R INJ) 10 units ONCE ONCE IV PUSH Last administered on 02/09/17 03:43; Start 02/09/17 at 03:30; Stop 02/09/17 at 03:31 ; Status DC Ondansetron HCl 4 mg 4 mg ONCE ONCE IVP Last administered on 02/09/17 04:50; Start 02/09/17 at 04:45; Stop 02/09/17 at 04:46; Status DC Sodium Chloride (NS 1000 ml Inj) 1,000 ml @ 125 mls/hr Q8H IV Last administered on 02/09/17 04:50; Start 02/09/17 at 04:40; Stop 02/09/17 at 05:04 ; Status DC Hydromorphone HCl 0.5 mg 0.5 mg ONCE ONCE IVS Last administered on 02/09/17 04:50; Start 02/09/17 at 04:45; Stop 02/09/17 at 04:46; Status DC Sodium Chloride (NS 1000 ml Inj) 1,000 ml @ 100 mls/hr Q10H IV Last administered on 02/10/17 08:29; Start 02/09/17 at 04:56 Sodium Chloride (NS Flush) 2 ml UNSCH PRN IV FLUSH FLUSH AFTER USING IV ACCESS ; Start 02/09/17 at 05:00 Sodium Chloride (NS Flush) 2 ml BID IV FLUSH Last administered on 02/09/17 22: 32; Start 02/09/17 at 09:00 Naloxone HCl (Narcan Inj) 0.4 mg UNSCH PRN IV SEE LABEL COMMENTS; Start at 05:00 Metformin HCl (Glucophage) 1,000 mg BIDPC PO Last administered on 02/10/17 08: 29; Start 02/09/17 at 12:15 Dextrose (D50w (Vial) Inj) 50 ml UNSCH PRN IV HYPOGLYCEMIA-SEE COMMENTS; Start 02/09/17 at 12:15 Glucagon (Glucagon Inj) 1 mg UNSCH PRN OTHER HYPOGLYCEMIA-SEE COMMENTS; Start 02/09/17 at 12:15 Insulin Aspart (NovoLOG SUPPLEMENTAL SCALE) 1 ACHS SLIDING SCALE SQ Last administered on 02/10/17 06:16; Start 02/09/17 at 16:00 Insulin Detemir (Levemir Inj) 10 units Q12HR SQ Last administered on 02/10/17 08:35; Start 02/09/17 at 21:00 Urinary Catheter: No Vascular Central Line Catheter: No A/P Problem List: (1) Hyperglycemia due to type 2 diabetes mellitus ICD Code: E11.65 Status: Acute (2) Acute pancreatitis ICD Code: K85.90 Status: Acute (3) Diabetes mellitus type 2, uncontrolled ICD Code: E11.65 Status: Acute (4) Elevated blood sugar ICD Code: R73.9 Status: Acute (5) Diabetes mellitus, type II ICD Code: E11.9 Status: Acute Assessment and Plan Uncontrolled diabetes. States his takes metformin and some pens not sure what type of insulin he takes could not tell me in name We'll start him on Levemir 10 units subcutaneous twice a day Resume his metformin Check a hemoglobin A1c A.m. labs Possible pancreatitis and fasting lipids. Recheck amylase and lipase in the morning Continue on a diabetic cardiac diet which she is tolerating Recommended smoking and alcohol cessation as well as marijuana cessation We'll monitor today will get diabetic education and nutrition to educate him. When he does understand how to use the pens/inject insulin MALIGNANT NONCOMPLIANCE NEEDS TO BE ON INSULIN FOR HGBA1C OF 15.4 NEEDS DM EDUCATION Discharge Planning HOME Problem Qualifiers (1) Hyperglycemia due to type 2 diabetes mellitus: Qualified Code: E11.65 - Type 2 diabetes mellitus with hyperglycemia, without long-term current use of insulin (2) Acute pancreatitis: Qualified Code: K85.90 - Acute pancreatitis, unspecified complication status, unspecified pancreatitis type Srinivasan Oneill DO Feb 10, 2017 11:46
[2017-02-10 12:00] VITALS: BP 131/95; PULSE 82; RESP 20; TEMP 97.8; O2SAT 97
[2017-02-10] MEDS ORDERED: BLOOD GLUCOSE M1 KIT (12:03)
[2017-02-10] MEDS ORDERED: BLOOD GLUCOSE T1 TES (12:03)
[2017-02-10] MEDS ORDERED: INSULIN SYRINGE1 M10 (12:03)
[2017-02-10] MEDS ORDERED: METF1000 PO (12:03)
[2017-02-10] MEDS ORDERED: LANTUS2P SQ (12:03)
--- NOTE | 2017-02-10 12:04 | HHI.DCPOC ---
Discharge Care Plan Diagnosis: (1) Diabetes mellitus, type II (2) Elevated blood sugar (3) Hyperglycemia due to type 2 diabetes mellitus (4) Diabetes mellitus type 2, uncontrolled (5) Acute pancreatitis Your Health Problems Are: Fluctuating Blood Sugars Goals to Promote Your Health * To prevent worsening of your condition and complications * To maintain your health at the optimal level Directions to Meet Your Goals Take your medications as prescribed Follow your dietary instruction Follow activity as directed Keep your appointments as scheduled Take your immunizations and boosters as scheduled If your symptoms worsen call your PCP, if no PCP go to Urgent Care Center or Emergency Room Smoking is Dangerous to Your Health. Avoid second hand smoke Call the 24-hour hour crisis hotline for domestic abuse at Srinivasan Oneill DO Feb 10, 2017 12:04
--- NOTE | 2017-02-10 12:06 | HHI.DS ---
Discharge Summary Admission Date Feb 09, 2017 at 04:56 Discharge Date: Feb 10, 2017 Admitting Diagnosis ACUTE PANCREATITIS,HYPERGLYCEMIA WITH MILD KETOSIS (1) Hyperglycemia due to type 2 diabetes mellitus ICD Code: E11.65 Diagnosis: Principal (2) Acute pancreatitis ICD Code: K85.90 Diagnosis: Secondary (3) Diabetes mellitus type 2, uncontrolled ICD Code: E11.65 Diagnosis: Principal (4) Elevated blood sugar ICD Code: R73.9 Diagnosis: Principal (5) Diabetes mellitus, type II ICD Code: E11.9 Diagnosis: Principal Procedures NONE Brief History - From Admission Patient is a 41-year-old male who presents with C/O DIFFUSE ABD CRAMPY PAIN, NO N/V/D/CP/SOB/MOON/ BUT HIGH BLOOD SUGAR FOR PAST 2 DAYS, NOT CONTROLLED WITH METFORMIN 1000MG PO BID PRESCRIBED. PT COMES IN FOR FURTHER EVALUATION AND CARE. ACCUCHECK IN 500'S Patient states he has some insulin pens but cannot recall any of the names cannot tell me what type he takes Start him on Levemir 10 units subcutaneous twice a day Continue on sliding scale coverage Get a.m. labs Check a hemoglobin A1c Get a fasting lipid panel CBC/BMP: 02/10/17 0608 02/10/17 0608 Significant Findings Laboratory Tests Test 02/09/17 02/09/17 02/09/17 02/09/17 03:20 03:30 04:02 23:10 Venous Blood pH 7.35 (7.360-7.400) Venous Blood Partial Pressure 41 mmHg (44-48) CO2 Venous Blood Partial Pressure 31 mmHg (35-40) O2 Venous Blood Oxygen Saturation 55 % (70-76) Venous Blood Base Excess -2.8 mmol/L (-2-2) White Blood Count 13.5 TH/MM3 (4.0-11.0) Red Blood Count 6.06 MIL/MM3 (4.50-5.90) Hemoglobin 17.4 GM/DL (13.0-17.0) Hematocrit 52.1 % (39.0-51.0) Neutrophils # (Auto) 9.2 TH/MM3 (1.8-7.7) Sodium Level 131 MEQ/L (136-145) Chloride Level 93 MEQ/L 109 MEQ/L (98-107) (98-107) Creatinine 1.40 MG/DL (0.60-1.30) Estimat Glomerular Filtration 67 ML/MIN (>89) Rate Random Glucose 637 MG/DL 238 MG/DL (74-106) (74-106) Hemoglobin A1c 15.2 % (4.3-6.0) Alkaline Phosphatase 126 U/L (45-117) Troponin I LESS THAN 0.02 NG/ML (0.02-0.05) Total Protein 8.6 GM/DL (6.4-8.2) Lipase 773 U/L (73-393) B-Hydroxybutyrate 0.66 MMOL/L (0.00-0.39) Urine Specific [place] 1.041 (1.002-1.035) Urine Glucose (UA) 1000 mg/dL (NEG) Urine Ketones 40 mg/dL (NEG) Calcium Level 7.5 MG/DL (8.5-10.1) Test 02/10/17 06:08 White Blood Count 11.5 TH/MM3 (4.0-11.0) Neutrophils (%) (Auto) 73.5 % (16.0-70.0) Neutrophils # (Auto) 8.5 TH/MM3 (1.8-7.7) Potassium Level 3.4 MEQ/L (3.5-5.1) Chloride Level 109 MEQ/L (98-107) Random Glucose 216 MG/DL (74-106) Calcium Level 7.6 MG/DL (8.5-10.1) Aspartate Amino Transf 13 U/L (15-37) (AST/SGOT) Total Protein 5.8 GM/DL (6.4-8.2) Albumin 2.8 GM/DL (3.4-5.0) Triglycerides Level 151 MG/DL (42-150) Cholesterol Level 73 MG/DL (120-200) HDL Cholesterol 36.3 MG/DL (40.0-60.0) Imaging Last Impressions Abdomen/Pelvis CT 02/09/17 0326 Signed Impressions: Service Date/Time: Thursday, February 09, 2017 04:12 - CONCLUSION: Negative noncontrast CT abdomen/pelvis. Kareem Golden MD PE at Discharge GENERAL: This is a well-nourished, well-developed patient, in no apparent distress. SKIN: No rashes, ecchymoses or lesions. Cool and dry. HEAD: Atraumatic. Normocephalic. No temporal or scalp tenderness. EYES: Pupils equal round and reactive. Extraocular motions intact. No scleral icterus. No injection or drainage. ENT: Nose without bleeding, purulent drainage or septal hematoma. Throat without erythema, tonsillar hypertrophy or exudate. Uvula midline. Airway patent. Tongue is midline NECK: Trachea midline. No JVD or lymphadenopathy. Supple, nontender, no meningeal signs. CARDIOVASCULAR: Regular rate and rhythm without murmurs, gallops, or rubs. S1- S2 no S3 or S4 no heave or thrill or rub or gallop RESPIRATORY: Clear to auscultation. Breath sounds equal bilaterally. No wheezes , rales, or rhonchi. GASTROINTESTINAL: Abdomen soft, non-tender, nondistended. No hepato-splenomegaly , or palpable masses. No guarding. Obese MUSCULOSKELETAL: Extremities without clubbing, cyanosis, or edema. No joint tenderness, effusion, or edema noted. No calf tenderness. Negative Homans sign bilaterally. NEUROLOGICAL: Awake and alert. Cranial nerves II through XII intact. Motor and sensory grossly within normal limits. Five out of 5 muscle strength in all muscle groups. Normal speech. Insight and judgment appear limited mood and behavior appropriate Pt update on day of discharge SUGARS ARE BETTER WANTS TO GO HOME NEEDS DM EDUCATION Hospital Course Patient is a 41-year-old male who presents with C/O DIFFUSE ABD CRAMPY PAIN, NO N/V/D/CP/SOB/MOON/ BUT HIGH BLOOD SUGAR FOR PAST 2 DAYS, NOT CONTROLLED WITH METFORMIN 1000MG PO BID PRESCRIBED. PT COMES IN FOR FURTHER EVALUATION AND CARE. ACCUCHECK IN 500'S Patient states he has some insulin pens but cannot recall any of the names cannot tell me what type he takes Start him on Levemir 10 units subcutaneous twice a day Continue on sliding scale coverage Get a.m. labs Check a hemoglobin A1c Get a fasting lipid panel 01-10 HBAIC IS 15.2 PATIENT HAS BEEN NONCOMPLIANT NEEDS TO TAKE HIS LANTUS AND METFORMIN NEEDS TO FOLLOW WITH HIS PRIMARY AND LEARN TO CONTROL HIS DIABETES WANTS TO GO HOME NEEDS TO TAKE INSULIN NEEDS TO BE COMPLIANT Pt Condition on Discharge: Fair Discharge Disposition: Discharge Home Discharge Time: > 30 minutes Discharge Instructions DIET: Follow Instructions for: Heart Healthy Diet, Diabetic Diet Activities you can perform: Regular-No Restrictions Follow up Referrals: PCP Follow-up - 3-5 Days with Lakeisha Zamora MD New Medications: Blood Glucose Monitoring W/Device (Blood Glucose Monitoring W/Device) 1 Kit Kit 1 KIT .ROUTE DIRECTED Blood Sugar Management #1 Ref 0 KIT Blood Glucose Test Strips (Blood Glucose Test Strips) Strips Strip 1 EA .ROUTE DIRECTED Blood Sugar Management #300 Ref 11 BOX Insulin Glargine Inj (Lantus Inj) 100 Unit/Ml Inj 20 UNITS SQ DAILY Blood Sugar Management #7 VIAL Insulin Syringe/Needle U-100 (Insulin Syringe/0.5ML/30G 30G X 1/2" 0.5 ml) 1 Mis Mis 1 BOX .ROUTE DIRECTED PRN BLOOD SUGAR MONITORING #1 Ref 11 BOX Continued Medications: Metformin (Metformin) 1,000 Mg Tab 1000 MG PO BIDPC With meals Blood Sugar Management #60 Ref 6 TAB (This prescription has been renewed) Srinivasan Oneill DO Feb 10, 2017 12:05
[2017-02-10 15:52] LABS: HEMOGLOBIN A1a 0.9 %; HEMOGLOBIN A1b 3.7 %; HEMOGLOBIN Ao 71.9 %; HEMOGLOBIN LA1C 2.3 %; HEMOGLOBIN P3 4.9 %
[2017-02-22] MEDS ORDERED: HUMA100I3 SQ (16:27)
== END 2017-02-10 14:54 | disposition home or self-care (01) ==
LOC: NEPC 21:46 → NEDA 02-09 04:56 → NEPFCDU 02-09 12:38
PROVIDERS: ADMIT Hospitalist; ATTEND Hospitalist
DX: E11.65 Type 2 diabetes mellitus with hyperglycemia (principal); Z91.19 Patient's noncompliance with other medical treatment and regimen; I10 Essential (primary) hypertension; K85.90 Acute pancreatitis without necrosis or infection, unspecified; F10.10 Alcohol abuse, uncomplicated; F12.10 Cannabis abuse, uncomplicated; F17.200 Nicotine dependence, unspecified, uncomplicated; Z79.84 Long term (current) use of oral hypoglycemic drugs; Z79.899 Other long term (current) drug therapy
CPT/HCPCS: 74176; 80053; 80061; 81001; 82010; 82150; 82805; 82948; 83036; 83690; 83735; 84100; 84439; 84443; 84484; 85025; 93005; 96361; 96365; 96372; 96375; 99285; G0378; J1170; J1815; J2405; J7030; 80048

== ENCOUNTER 2017-09-27 14:40 | Emergency (ER) | payer MEDICAID ==
[~2017-09-27] VITALS: Ht 182.9 cm; Wt 100.0 kg
[~2017-09-27 14:40] MED LIST changes: +BLOOD GLUCOSE M1 KIT; +BLOOD GLUCOSE T1 TES; +HUMA100I3 SQ; +INSULIN SYRINGE1 M10; -LANTINJ SQ; +LANTUS2P SQ; -PEN31MIS2
[2017-09-27] MEDS ORDERED: IOHEXOL 350 MG/ML 10 ML VIAL (for RAD DIAG) IVCONTRAST ONE (14:41)
[2017-09-27 14:43] VITALS: BP 150/83; PULSE 116; RESP 16; TEMP 98.4; O2SAT 98
[2017-09-27] MEDS ORDERED: LANTUS2P SQ (15:25)
[2017-09-27] MEDS ORDERED: SODIUM CHLOR 0.9% 1000 ML INJ 1,000 ML IV SCH (15:27)
[2017-09-27 15:28] VITALS: BP 144/98; PULSE 105; RESP 17; O2SAT 97
[2017-09-27] MEDS ORDERED: SODIUM CHLOR 0.9% 1000 ML INJ 1,000 ML IV ONE ×2 (15:30→17:30)
[2017-09-27] MEDS ORDERED: INSULIN HUMAN REGULAR 1,000 UNITS/10 ML VIAL IV PUSH ONE ×2 (15:30→17:45)
[2017-09-27] MEDS ORDERED: SODIUM CHLORIDE 0.9% FLUSH 10 ML FLUSH IV FLUSH PRN (15:30)
--- NOTE | 2017-09-27 15:43 | PD ---
HPI Chief Complaint: Diabetic Time Seen by Provider: 15:26 Travel History International Travel<30 days: No Contact w/Intl Traveler<30days: No Traveled to known affect area: No History of Present Illness HPI Patient comes emergency department complaining of hyperglycemia ongoing for 2 weeks. He states over the past 2 weeks his blood sugars have been running chronically high however today they become unreadable on his meter. Patient reports that he takes his metformin and Lantus as prescribed and is usually able keep his blood sugars around 200 as long as he watches his diet. Patient states he has not had to go to the ER for a while secondary to his blood sugars. He has not been admitted to the hospital in several years. Patient reports associated polydipsia and polyuria. Denies any chest pain, shortness of breath, abdominal pain, or fevers. Denies any making symptoms better or worse. Severity moderate. PFSH Past Medical History Diabetes: Yes Patient Takes Glucophage: Yes Diminished Hearing: No Hypertension: Yes Past Surgical History Surgical History: No Previous Surgery Social History Alcohol Use: No Tobacco Use: No Substance Use: Yes (THC) Allergies-Medications (Allergen,Severity, Reaction): Coded Allergies: No Known Allergies (Unverified Allergy, Unknown, 09/27/17) Reported Meds & Prescriptions Reported Meds & Active Scripts Active Insulin Syringe/0.5ML/30G 30G X 1/2" 0.5 ml (Insulin Syringe/Needle U-100) 1 Mis Mis 1 Box .ROUTE DIRECTED PRN Blood Glucose Test Strips Strips Strip 1 Ea .ROUTE DIRECTED Blood Glucose Monitoring W/Device (Device) 1 Kit Kit 1 Kit .ROUTE DIRECTED Metformin (Metformin HCl) 1,000 Mg Tab 1,000 Mg PO BIDPC With meals Reported Lantus Inj (Insulin Glargine) 1,000 Unit/10 Ml Vial 50 Units SQ HS Review of Systems Except as stated in HPI: all other systems reviewed are Neg Physical Exam Narrative GENERAL: Well-developed, overly nourished, in no acute distress, and non-ill appearing. SKIN: Focused skin assessment warm and dry. HEAD: Atraumatic. Normocephalic. EYES: Pupils equal and round. EOMI. No scleral icterus. No injection or drainage. ENT: No nasal bleeding or discharge. Mucous membranes pink and moist. NECK: Trachea midline. Supple. No nuclear rigidity. CARDIOVASCULAR: Regular rate and rhythm. No murmur appreciated. RESPIRATORY: No accessory muscle use. No respiratory distress. Clear to auscultation. Breath sounds equal bilaterally. GASTROINTESTINAL: Abdomen soft, non-tender, nondistended, and no guarding. Hepatic and splenic margins not palpable. Normal bowel sounds x4. No pulsatile mass. MUSCULOSKELETAL: No obvious deformities. No clubbing. No cyanosis. No edema. Full range of motion. NEUROLOGICAL: Awake and alert. No obvious cranial nerve deficits. Motor grossly within normal limits. Normal speech. PSYCHIATRIC: Appropriate mood and affect; insight and judgment normal. Data Data Last Documented VS Vital Signs Date Time Temp Pulse Resp B/P (MAP) Pulse Ox O2 Delivery O2 Flow Rate FiO2 09/27/17 19:36 09/27/17 19:20 78 18 98 Room Air 09/27/17 14:43 98.4 Orders Orders Lipase (09/27/17 14:48) Complete Blood Count With Diff (09/27/17 14:48) Comprehensive Metabolic Panel (09/27/17 14:48) Magnesium (Mg) (09/27/17 14:48) Beta Hydroxybutyrate (Acetone) (09/27/17 14:48) Urinalysis - C+S If Indicated (09/27/17 14:48) Iv Access Insert/Monitor (09/27/17 15:27) Ecg Monitoring (09/27/17 15:27) Oximetry (09/27/17 15:27) Sodium Chlor 0.9% 1000 Ml Inj (Ns 1000 M (09/27/17 15:27) Sodium Chloride 0.9% Flush (Ns Flush) (09/27/17 15:30) Sodium Chlor 0.9% 1000 Ml Inj (Ns 1000 M (09/27/17 15:30) Insulin Human Regular Inj (Novolin R Inj (09/27/17 15:30) Ct Abd/Pel W Iv Contrast(Rout) (09/27/17 16:09) Blood Glucose (09/27/17 16:52) Iohexol 350 Inj (Omnipaque 350 Inj) (09/27/17 14:41) Sodium Chlor 0.9% 1000 Ml Inj (Ns 1000 M (09/27/17 17:30) Insulin Human Regular Inj (Novolin R Inj (09/27/17 17:45) Basic Metabolic Panel (Bmp) (09/27/17 18:11) Lipase (09/27/17 18:11) Ed Discharge Order (09/27/17 19:28) Labs Laboratory Tests Test 09/27/17 15:28 09/27/17 17:13 09/27/17 18:44 White Blood Count 11.5 TH/MM3 Red Blood Count 5.70 MIL/MM3 Hemoglobin 16.2 GM/DL Hematocrit 49.3 % Mean Corpuscular Volume 86.4 FL Mean Corpuscular Hemoglobin 28.3 PG Mean Corpuscular Hemoglobin Concent 32.8 % Red Cell Distribution Width 13.5 % Platelet Count 266 TH/MM3 Mean Platelet Volume 10.3 FL Neutrophils (%) (Auto) 70.8 % Lymphocytes (%) (Auto) 22.3 % Monocytes (%) (Auto) 5.6 % Eosinophils (%) (Auto) 0.4 % Basophils (%) (Auto) 0.9 % Neutrophils # (Auto) 8.1 TH/MM3 Lymphocytes # (Auto) 2.6 TH/MM3 Monocytes # (Auto) 0.6 TH/MM3 Eosinophils # (Auto) 0.0 TH/MM3 Basophils # (Auto) 0.1 TH/MM3 CBC Comment DIFF FINAL Differential Comment Blood Urea Nitrogen 7 MG/DL 7 MG/DL Creatinine 1.40 MG/DL 1.03 MG/DL Random Glucose 701 MG/DL 311 MG/DL Total Protein 7.3 GM/DL Albumin 3.5 GM/DL Calcium Level 9.0 MG/DL 7.8 MG/DL Magnesium Level 1.8 MG/DL Alkaline Phosphatase 113 U/L Aspartate Amino Transf (AST/SGOT) 17 U/L Alanine Aminotransferase (ALT/SGPT) 24 U/L Total Bilirubin 0.9 MG/DL Sodium Level 130 MEQ/L 141 MEQ/L Potassium Level 4.0 MEQ/L 3.4 MEQ/L Chloride Level 97 MEQ/L 108 MEQ/L Carbon Dioxide Level 20.6 MEQ/L 23.8 MEQ/L Anion Gap 12 MEQ/L 9 MEQ/L Estimat Glomerular Filtration Rate 67 ML/MIN 95 ML/MIN Lipase 921 U/L 637 U/L B-Hydroxybutyrate 0.44 MMOL/L Urine Color COLORLESS Urine Turbidity CLEAR Urine pH 5.0 Urine Specific Reed 1.040 Urine Protein NEG mg/dL Urine Glucose (UA) 1000 mg/dL Urine Ketones TRACE mg/dL Urine Occult Blood NEG Urine Nitrite NEG Urine Bilirubin NEG Urine Urobilinogen LESS THAN 2.0 MG/DL Urine Leukocyte Esterase NEG Urine WBC LESS THAN 1 /hpf Microscopic Urinalysis Comment CULT NOT INDICATED MDM Medical Decision Making Medical Screen Exam Complete: Yes Emergency Medical Condition: Yes Interpretation(s) Last Impressions Abdomen/Pelvis CT 09/27/17 1609 Signed Impressions: Service Date/Time: Wednesday, September 27, 2017 17:06 - CONCLUSION: No acute abnormality demonstrated. Small umbilical hernia containing fat only. Mario Alberto Garcia MD Differential Diagnosis Uncontrolled diabetes, hyperglycemia, DKA, metabolic disturbance, dehydration Narrative Course The hyperglycemia may be due to noncompliance with ADA diet alone but may also be due to poorly controlled diabetes. Regardless the patient is stable, tolerating fluids, hydrated and non ill appearing and may be discharged home with acute follow up with Primary Care physician and undergo outpatient evaluation for possible adjustment of diabetic medication. The patient agreed with plan. Patient in no obvious distress upon re-evaluation. All pertinent laboratory/ Radiology result(s) discussed with patient. Discussed patient with Dr. Morillo prior discharge, who is in agreement plan of care and disposition. Any questions /concerns in reference to patient diagnosis/condition discussed and clarified prior to patient's discharge. Reinforced sheer importance of close follow up with patient's primary physician or primary care clinic. Instructed patient to return to ED immediately, if symptoms return/worsen. Patient showed understanding of above instructions. Further instructions and recommendations were detailed in discharge paperwork. Patient ambulated without difficulty out of ED at discharge. Diagnosis Primary Impression: Diabetes mellitus type 2, uncontrolled Qualified Codes: E11.65 - Type 2 diabetes mellitus with hyperglycemia Additional Impression: Elevated lipase Patient Instructions: Clear Liquid Diet (ED), Diabetic Hyperglycemia (ED), General Instructions Additional Instructions: Follow-up with your primary care physician this week for reevaluation. Clear liquid diet 24 hours. Return to the emergency department if symptoms get worse. Med/Other Pt SpecificInfo: Prescription(s) given Disposition: 01 DISCHARGE HOME Condition: Stable Donavan Calderon Sep 27, 2017 15:43
[2017-09-27 15:46] LABS: AUTOMATED NEUTROPHIL # 8.1 TH/MM3 (1.8-7.7); BASOPHIL # 0.1 TH/MM3 (0-0.2); BASOPHIL % 0.9 % (0.0-2.0); EOSINOPHIL % 0.4 % (0.0-4.0); HEMATOCRIT 49.3 % (39.0-51.0); HEMOGLOBIN 16.2 GM/DL (13.0-17.0); LYMPH % 22.3 % (9.0-44.0); LYMPHOCYTE # 2.6 TH/MM3 (1.0-4.8); MEAN CELL VOLUME 86.4 FL (80.0-100.0); MEAN CORPUSCULAR HEMOGLOBIN 28.3 PG (27.0-34.0); MEAN CORPUSCULAR HGB CONC 32.8 % (32.0-36.0); MEAN PLATELET VOLUME 10.3 FL (7.0-11.0); MONO % 5.6 % (0.0-8.0); MONOCYTE # 0.6 TH/MM3 (0-0.9); NEUT % 70.8 % (16.0-70.0); PLATELET COUNT 266 TH/MM3 (150-450); RED CELL DISTRIBUTION WIDTH 13.5 % (11.6-17.2); WHITE BLOOD COUNT 11.5 TH/MM3 (4.0-11.0)
[2017-09-27 16:05] LABS: ALBUMIN 3.5 GM/DL (3.4-5.0); ALT (GPT) 24 U/L (12-78); AST (GOT) 17 U/L (15-37); BICARBONATE 20.6 MEQ/L (21.0-32.0); BLOOD UREA NITROGEN 7 MG/DL (7-18); CHLORIDE 97 MEQ/L (98-107); GLOMERULAR FILTRATION RATE 67 ML/MIN (>89); MAGNESIUM 1.8 MG/DL (1.5-2.5); SODIUM (NA) 130 MEQ/L (136-145)
[2017-09-27 16:07] LABS: GLUCOSE,RANDOM 701 MG/DL (74-106)
[2017-09-27 16:08] LABS: ALKALINE PHOSPHATASE 113 U/L (45-117); TOTAL BILIRUBIN ADULT 0.9 MG/DL (0.2-1.0); TOTAL PROTEIN 7.3 GM/DL (6.4-8.2)
--- NOTE | 2017-09-27 17:35 | RADRPT ---
EXAM DATE/TIME: 09/27/2017 17:06 [facility] COMPARISON: CT ABDOMEN & PELVIS W/O CONTRAST, February 09, 2017, 4:12. INDICATIONS : Patient complains of abdominal pain. IV CONTRAST: 90 cc Omnipaque 350 (iohexol) IV ORAL CONTRAST: No oral contrast ingested. RADIATION DOSE: 16.01 CTDIvol (mGy) MEDICAL HISTORY : Hypertension. Diabetes mellitus type 1. SURGICAL HISTORY : None. ENCOUNTER: Initial ACUITY: 1 day PAIN SCALE: 9/10 LOCATION: abdomen TECHNIQUE: Volumetric scanning of the abdomen and pelvis was performed. Using automated exposure control and ad justment of the mA and/or kV according to patient size, radiation dose was kept as low as reasonably achievable to obtain optimal diagnostic quality images. DICOM format image data is available electro nically for review and comparison. FINDINGS: LOWER LUNGS: The visualized lower lungs are clear. LIVER: Homogeneous density without lesion. There is no dilation of the biliary tree. No calcified gallston es. SPLEEN: Normal size without lesion. PANCREAS: Within normal limits. KIDNEYS: Normal in size and shape. There is no mass, stone or hydronephrosis. ADRENAL GLANDS: Within normal limits. VASCULAR: There is no aortic aneurysm. BOWEL/MESENTERY: The stomach, small bowel, and colon demonstrate no acute abnormality. There is no free intraperitone al air or fluid. Normal appendix. ABDOMINAL WALL: Small fat containing umbilical hernia noted, unchanged. RETROPERITONEUM: There is no lymphadenopathy. BLADDER: No wall thickening or mass. REPRODUCTIVE: Within normal limits. INGUINAL: There is no lymphadenopathy or hernia. MUSCULOSKELETAL: The scattered sclerotic foci of the right iliac bone are again noted, nonspecific but without appreci able change and most likely benign bone islands. CONCLUSION: No acute abnormality demonstrated. Small umbilical hernia containing fat only. Mario Alberto Garcia MD on September 27, 2017 at 17:31 Board Certified Radiologist. This report was verified electronically.
[2017-09-27 17:43] LABS: BILIRUBIN, URINE NEG (NEG); BLOOD, URINE NEG (NEG); GLUCOSE,URINE 1000 mg/dL (NEG); KETONE, URINE TRACE mg/dL (NEG); NITRITE,URINE NEG (NEG); URINE COLOR COLORLESS (YELLW/STRAW); URINE LEUKOCYTE ESTERASE NEG (NEG)
[2017-09-27 19:18] LABS: BICARBONATE 23.8 MEQ/L (21.0-32.0); CALCIUM 7.8 MG/DL (8.5-10.1); CREATININE 1.03 MG/DL (0.60-1.30)
[2017-09-27 19:20] VITALS: BP 133/87; PULSE 78; RESP 18; O2SAT 98
== END 2017-09-27 19:43 | disposition home or self-care (01) ==
LOC: NEPE 14:40
DX: E11.65 Type 2 diabetes mellitus with hyperglycemia (principal); R74.8 Abnormal levels of other serum enzymes; I10 Essential (primary) hypertension; Z79.4 Long term (current) use of insulin; Z79.84 Long term (current) use of oral hypoglycemic drugs
CPT/HCPCS: 74177; 80053; 81001; 82010; 83690; 83735; 85025; 96361; 96374; 96376; 99284; J1815; J7030; Q9967; 80048